=== PATIENT | female | born 1930 | race Caucasian/White ===

== ENCOUNTER 2017-07-02 20:46 | Inpatient (IN) | payer MEDICARE ==
[~2017-07-02] VITALS: Ht 152.4 cm; Wt 56.7 kg
--- OUTSIDE RECORDS SUMMARY | 2017-07-02 20:48 | XMS REPORT | Summary of Care ---
Author Author Keysha Barragan, Hanna Tommy Unknown Address Unknown Phone Unavailable Care Team Providers Care Land Conservation Specialist Name Role Phone SHILO Gomez, DAVE Unavailable Unavailable MAITE Mims, JAMISON Unavailable Unavailable JIE Gomez, YUDITH Unavailable Unavailable SHILO MÉNDEZ MT, DAVE Torres Unavailable Unavailable Unavailable Unavailable Functional Status Name Dates Details Functional status health issues are not documented Status: Name Dates Details Cognitive status health issues are not documented Status: Problems Name Dates Details Hyperlipidemia (272.4, E78.5) Status: Active Anxiety and depression (300.00, F41.9) Status: Active GERD without esophagitis (530.81, K21.9) Status: Active Rosalba vaginitis (112.1, B37.3) Status: Active Pruritus (698.9, L29.9) Status: Active Constipation (564.00, K59.00) Status: Active Hemorrhoids (455.6, K64.9) Status: Active Vaginal itching (698.1, L29.8) Status: Active Frequent urination (788.41, R35.0) Status: Active Benign hypertension (401.1, I10) Status: Active Fall in home, initial encounter (E888.9, W19.XXXA) Status: Active Contusion of left hand, initial encounter (923.20, S60.222A) Status: Active Pain of left hand (729.5, M79.642) Status: Active Contusion of left thigh, initial encounter (924.00, S70.12XA) Status: Active Low back pain (724.2, M54.5) Status: Active Restless leg syndrome (333.94, G25.81) Status: Active Macular degeneration (362.50, H35.30) Status: Active Tinea pedis of right foot (110.4, B35.3) Status: Active Preoperative clearance (V72.84, Z01.818) Status: Active Fracture, metacarpal, neck (815.04, S62.339A) Status: Active Balance problem (781.99, R26.89) Status: Active Closed displaced fracture of neck of first metacarpal bone of left hand, initial encounter (815.04, S62.252A) Status: Active Peripheral neuropathy (356.9, G62.9) Status: Active Hearing loss (389.9, H91.90) Status: Active Visual impairment in both eyes (369.3, H54.3) Status: Active Medications Name Dates Details AmLODIPine Besylate 5 MG Oral Tablet TAKE 1 TABLET BY MOUTH DAILY Quantity: 90 DAVE LAO M.D. * Start : 29-May-2017 Active Benazepril HCl - 20 MG Oral Tablet TAKE 1 TABLET BY MOUTH DAILY * Quantity: 90 Refills: 1 DAVE LAO M.D. * Start : 21-Apr-2017 Active BuPROPion HCl ER (XL) 150 MG Oral Tablet Extended Release 24 Hour * Refills: 0 Active Omeprazole 20 MG Oral Tablet Delayed Release * Refills: 0 Active PARoxetine HCl - 20 MG Oral Tablet TAKE 1 TABLET DAILY. * Quantity: 90 Refills: 0 DAVE LAO M.D. Active MiraLax Oral Powder * Refills: 0 Active ROPINIRole HCl - 1 MG Oral Tablet TAKE 3 TABLETS BY MOUTH AT BEDTIME * Quantity: 270 Refills: 1 DAVE LAO M.D. * Start : 27-Feb-2017 Active Simvastatin 20 MG Oral Tablet TAKE 1 TABLET DAILY. * Quantity: 90 Refills: 1 DAVE LAO M.D. Active Nystatin-Triamcinolone 501267-6.1 UNIT/GM-% External Cream APPLY SPARINGLY TO AFFECTED AREA(S) TWICE DAILY X2 WKS, THEN STOP. * Quantity: 30 Refills: 2 DAVE LAO M.D. * Start : 21-Aug-2016 Active Triamcinolone Acetonide 0.1 % External Cream APPLY THIN LAYER EXTERNALLY TO THE AFFECTED AREA TWICE DAILY NEEDED * Quantity: 30 Refills: 1 DAVE LAO M.D. * Start : 07-Oct-2016 Active Gabapentin 100 MG Oral Capsule TAKE 2 CAPSULES 3 TIMES DAILY. * Quantity: 540 Refills: 1 DAVE LAO M.D. * Start : 25-Aug-2016 Active Clotrimazole-Betamethasone 1-0.05 % External Lotion APPLY AND RUB IN A THIN FILM TO AFFECTED AREAS TWICE DAILY.(AM AND PM). * Quantity: 1 Refills: 2 YEH D.O., TAMIKANellyLILY * Start : 18-May-2017 Active 30 ML Bottle Ondansetron HCl - 8 MG Oral Tablet TAKE 1 TABLET Every twelve hours * Quantity: 15 Refills: 0 MANSDYANA M.D., YUDITH * Start : 20-May-2017 Active Colace 100 MG Oral Capsule TAKE 1 CAPSULE 3 TIMES DAILY. * Quantity: 45 Refills: 0 MANSDYANA M.D., YUDITH * Start : 20-May-2017 Active Allergies and Adverse Reactions Name Dates Details Iodine SOLN (Allergy) Status: Active Past Medical History Name Dates Details History of Bilateral hearing loss (389.9, H91.93) Status: Resolved History of depression (V11.8, Z86.59) Status: Resolved History of high cholesterol (V12.29, Z86.39) Status: Resolved History of hypertension (V12.59, Z86.79) Status: Resolved History of osteoporosis (V13.59, Z87.39) Status: Resolved History of Vision problem (V41.0, H54.7) Status: Resolved Procedures Procedure Dates Details [U] XRAY FINGER(S) - 2 VWS MIN. LEFT 90224 Date: 29-Jun-2017 History of Back surgery Completed History of Appendectomy Completed Immunization Name Dates Details Immunizations not documented Family History Name Dates Details Family history of intracranial hemorrhage (V17.1, Z82.3) Status: Active Family history of cerebrovascular accident (CVA) (V17.1, Z82.3) Status: Active Social History Name Dates Details - Status: Name Dates Details Smoker. current status unknown Vital Signs Date Test Result Details [id number] BP Systolic 181 mm[Hg] Status: Comments: Location: LUE; Position: Sitting BP Diastolic 76 mm[Hg] Status: Comments: Location: LUE; Position: Sitting Height 60 in Status: Weight 121 lb Status: Body Mass Index Calculated 23.63 kg/m2 Status: Body Surface Area Calculated 1.51 m2 Status: Temperature 98 f Status: Comments: Method: Temporal Respiration Rate 16 /min Status: Heart Rate 77 /min Status: Results Date Description Value Details :39 [U] XRAY FINGER(S) - 2 VWS MIN. LEFT 94155 XR FINGER(S) - 2 VWS MIN. LEFT Images acquired, not reported on this accession number. :18 [Q] LIPID PANEL WITH REFLEX TO DIRECT LDL CHOLESTEROL, TOTAL 252 mg/dl (Above high threshold) Range: <200 HDL CHOLESTEROL 69 mg/dl (Normal) Range: >50 TRIGLYCERIDES 77 mg/dl (Normal) Range: <150 LDL-CHOLESTEROL 165 {MG/DL__CAL} (Above high threshold) Comments: Reference range: <100 Desirable range <100 mg/dL for primary prevention; <70 mg /dL for patients with CHD or diabetic patients with > or=2 CHD risk factors. LDL -C is now calculated using the Андрей calculation, which is a validated novel method providing better accuracy than the Friedewald equation in the estimation of LDL-C. Dom RUBIO et al. ARTHUR. 2013;310(19): 2568-7048 (http:// education.[employer]/faq/BXS283) CHOL/HDLC RATIO 3.7 {CALC} (Normal) Range: <5.0 NON HDL CHOLESTEROL 183 {MG/DL__CAL} (Above high threshold) Range: <130 Comments: For patients with diabetes plus 1 major ASCVD risk factor, treating to a non-HDL-C goal of <100 mg/dL (LDL-C of <70 mg/dL) is considered a therapeutic option. :18 [QL] CMP W/EGFR GLUCOSE 87 mg/dl (Normal) Range: 65-99 Comments: Fasting reference interval UREA NITROGEN (BUN) 26 mg/dl (Above high threshold) Range: 7-25 CREATININE 0.89 mg/dl (Above high threshold) Range: 0.60-0.88 Comments: For patients >49 years of age, the reference limitfor Creatinine is approximately 13% higher for peopleidentified as -Swiss. eGFR NON- 59 {ML/MIN/1.7} (Below low threshold) Range: > OR=60 eGFR 68 {ML/MIN/1.7} (Normal) Range: > OR=60 BUN/CREATININE RATIO 29 {CALC} (Above high threshold) Range: 6-22 SODIUM 140 mmol/L (Normal) Range: 135-146 POTASSIUM 4.2 mmol/L (Normal) Range: 3.5-5.3 CHLORIDE 106 mmol/L (Normal) Range: 98-110 CARBON DIOXIDE 29 mmol/L (Normal) Range: 20-31 CALCIUM 9.6 mg/dl (Normal) Range: 8.6-10.4 PROTEIN, TOTAL 6.8 g/dl (Normal) Range: 6.1-8.1 ALBUMIN 3.9 g/dl (Normal) Range: 3.6-5.1 GLOBULIN 2.9 {G/DL__CALC} (Normal) Range: 1.9-3.7 ALBUMIN/GLOBULIN RATIO 1.3 {CALC} (Normal) Range: 1.0-2.5 BILIRUBIN, TOTAL 0.4 mg/dl (Normal) Range: 0.2-1.2 ALKALINE PHSPHATASE 78 u/l (Normal) Range: 33-130 AST 21 u/l (Normal) Range: 10-35 ALT 14 u/l (Normal) Range: 6-29 [id number]:18 [[facility]] CBC (INCLUDES DIFF/PLT) WHITE BLOOD CELL COUNT 8.2 {Thousand/u} (Normal) Range: 3.8-10.8 RED BLOOD CELL COUNT 4.28 {Million/uL} (Normal) Range: 3.80-5.10 HEMOGLOBIN 12.4 g/dl (Normal) Range: 11.7-15.5 HEMATOCRIT 37.6 % (Normal) Range: 35.0-45.0 MCV 87.9 fL (Normal) Range: 80.0-100.0 MCH 29.0 pg (Normal) Range: 27.0-33.0 MCHC 33.0 g/dl (Normal) Range: 32.0-36.0 RDW 14.4 % (Normal) Range: 11.0-15.0 PLATELET COUNT 280 {Thousand/u} (Normal) Range: 140-400 MPV 11.5 fL (Normal) Range: 7.5-12.5 ABSOLUTE NEUTROPHILS 5994 {cells/uL} (Normal) Range: 8960-3623 ABSOLUTE LYMPHOCYTES 1509 {cells/uL} (Normal) Range: 850-3900 ABSOLUTE MONOCYTES 582 {cells/uL} (Normal) Range: 200-950 ABSOLUTE EOSINOPHILS 74 {cells/uL} (Normal) Range: 15-500 ABSOLUTE BASOPHILS 41 {cells/uL} (Normal) Range: 0-200 NEUTROPHILS 73.1 % (Normal) LYMPHOCYTES 18.4 % (Normal) MONOCYTES 7.1 % (Normal) EOSINOPHILS 0.9 % (Normal) BASOPHILS 0.5 % (Normal) 66-Roj-53204:18 [[facility]] TSH, 3RD GENERATION W/REFLEX TO FT4 Comments: REPORT COMMENT:FASTING:YES TSH, 3RD GENERATION W/REFLEX TO FT4 3.82 {MIU/L} (Normal) Range: 0.40- 4.50 [id number]-[id number]:18 [U] XRAY FINGER(S) - 2 VWS MIN. LEFT 80270 XR FINGER(S) - 2 VWS MIN. LEFT Images acquired, not reported on this accession number. Plan of Care Name Dates Details Planned Observations Planned Goals not documented Planned Encounters Appointment; YUDITH CERON M.D. On: 02-Jul-2017 9:00 Appointment; DAVE LAO M.D. On: 29-Jul-2017 9:00 Interventions Provided Labs/Procedures/Imaging* [U] XRAY FINGER(S) - 2 VWS MIN. LEFT 71420; To Be Done : 02 Jul 2017 Instructions Name Dates Details Instructions not documented Encounters Appointment; DAVE LAO M.D. Encounter Diagnosis: Problem not documented On: 13-Aug-2016 10:45 Appointment; DAVE LAO M.D. Encounter Diagnosis: Problem not documented On: 21-Aug-2016 12:30 Appointment; DAVE LAO M.D. Encounter Diagnosis: Problem not documented On: 10-Sep-2016 14:45 Appointment; DAVE LAO M.D. Encounter Diagnosis: Problem not documented On: 27-Apr-2017 15:15 Appointment; MIGUELINA MONTEIRO NP Encounter Diagnosis: Problem not documented On: 01-May-2017 15:30 Appointment; ATA MEDRANO M.D. Encounter Diagnosis: Problem not documented On: 05-May-2017 14:00 Appointment; YUDITH CERON M.D. Encounter Diagnosis: Problem not documented On: 14-May-2017 8:00 Appointment; JAMISON ARORA D.O. Encounter Diagnosis: Problem not documented On: 18-May-2017 14:45 Appointment; YUDITH CERON M.D. Encounter Diagnosis: Problem not documented On: 21-May-2017 6:00 Appointment; YUDITH CERON M.D. Encounter Diagnosis: Problem not documented On: 04-Jun-2017 9:45 Appointment; DAVE LAO M.D. Encounter Diagnosis: Problem not documented On: 10-Jun-2017 13:45 Appointment; YUDITH CERON M.D. Encounter Diagnosis: Problem not documented On: 19-Jun-2017 13:00 Appointment; YUDITH CERON M.D. Encounter Diagnosis: Problem not documented On: 02-Jul-2017 9:00
[2017-07-02] MEDS ORDERED: PANTOPRAZOLE 40 MG 10ML VIAL IV STA (21:08)
[2017-07-02 21:28] LABS: BASOPHILS # (AUTO) 0.1 (0.0-0.1); BASOPHILS % 0.9 % (0.0-1.0); EOSINOPHILS # (AUTO) 0.1 (0.0-0.4); EOSINOPHILS % 2.4 % (0.0-6.0); HEMOGLOBIN 12.3 g/dL (12.0-16.0); LYMPHOCYTES # (AUTO) 1.5 (1.0-3.2); LYMPHOCYTES % 24.7 % (18.0-39.1); MEAN CORPUSCULAR HEMOGLOBIN 29.4 pg (28-32); MEAN CORPUSCULAR HGB CONC 32.4 g/dL (31-35); MEAN CORPUSCULAR VOLUME 90.9 fL (81-99); MONOCYTES # (AUTO) 0.4 (0.2-0.8); MONOCYTES % 7.5 % (4.4-11.3); NEUTROPHILS # (AUTO) 3.8 (2.1-6.9); NEUTROPHILS % 64.3 % (38.7-80.0); PLATELET COUNT 205 x10e3/uL (140-360); RED BLOOD COUNT 4.18 x10e6/uL (3.6-5.1); RED CELL DISTRIBUTION WIDTH 16.8 % (11.7-14.4)
[2017-07-02 21:35] LABS: INR 0.98; PROTHROMBIN TIME 12.2 seconds (11.9-14.5)
[2017-07-02 21:36] LABS: PARTIAL THROMBOPLASTIN TIME 30.2 seconds (23.8-35.5)
[2017-07-02 21:43] LABS: ALANINE AMINOTRANSFERASE 19 IU/L (0-55); ALBUMIN 3.7 g/dL (3.5-5.0); ALBUMIN/GLOBULIN RATIO 0.9 (0.8-2.0); ALKALINE PHOSPHATASE 76 IU/L (40-150); ANION GAP 11.1 mmol/L (8-16); BLOOD UREA NITROGEN 21 mg/dL (7-26); BUN/CREATININE RATIO 20 (6-25); CALCIUM 10.4 mg/dL (8.4-10.2); CARBON DIOXIDE 31 mmol/L (22-29); CHLORIDE 102 mmol/L (98-107); CREATINE KINASE 155 IU/L (29-168); CREATININE, SERUM 1.07 mg/dL (0.57-1.11); EST GLOMERULAR FILTRATION RATE 49 ML/MIN (60-); GLUCOSE 127 mg/dL (74-118); MAGNESIUM 2.3 MG/DL (1.3-2.1); POTASSIUM 4.1 mmol/L (3.5-5.1); SODIUM 140 mmol/L (136-145)
[2017-07-02 21:51] LABS: B-TYPE NATRIURETIC PEPTIDE2 64.3 pg/mL (0-100)
--- NOTE | 2017-07-02 22:05 | Diagnostic Imaging Report ---
EXAMINATION: Head CT without contrast. HISTORY:Altered mental status, fall. COMPARISON:None. TECHNIQUE: Multidetector axial images were obtained from the foramen magnum to the vertex without contrast. The images were reconstructed using brain and bone algorithms. Thin section brain images were reformatted into coronal and sagittal planes. Intravenous contrast: None IMAGE QUALITY: Suboptimal evaluation at the skull base and posterior fossa structures due to streak artifacts. FINDINGS: Skull/scalp: Nonspecific punctate radiopaque density in the right frontoparietal scalp at the vertex possibly represents calcifications. No acute calvarial abnormality. Parenchyma: Nonspecific bilateral frontoparietal confluent periventricular, patchy and confluent subcortical and deep white matter hypodensity are likely related to small vessel ischemic changes. 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 No acute hemorrhage or mass. No acute major vascular territorial infarct. However possibility of superimposed acute vascular insult on the small vessel white matter changes is not excluded. Arteries: Atherosclerotic calcification in bilateral carotid siphon. Dural sinuses: No abnormal density suggestive of thrombosis. Ventricles: Mild compensated dilatation due to volume loss. No hydrocephalus. Extra-axial spaces: No abnormal density. Brain volume: Generalized age-related cerebral volume loss. Craniocervical junction: No mass, Chiari malformation, or basilar invagination. Sella: No mass. Paranasal/mastoid sinuses: Imaged portions unremarkable. IMPRESSION: 1. No acute posttraumatic intracranial abnormality. 2. Severe supratentorial white matter microvascular ischemic changes. 3. Generalized age-related cerebral volume loss. Signed by: Dr. Agnes Scruggs M.D. on 07/02/2017 10:01 PM
--- NOTE | 2017-07-02 22:12 | Diagnostic Imaging Report ---
History: Fall. Comparison studies: None Technique: Axial images were obtained through the cervical region.. Coronal and sagittal images reconstructed from the axial data.. Intravenous contrast: None Findings: Fractures: None. Soft tissue injuries: None. Atlantoaxial articulation: Intact. Alignment: Reversal of normal cervical lordosis. No scoliosis. 3 mm grade 1 anterolisthesis at C3-C4, C4-C5 and 2 mm grade 1 retrolisthesis at C5-C6 are likely degenerative. Cervicomedullary junction: No abnormalities. The foramen magnum is patent. Soft tissues: No abnormalities. Vertebrae: Diffuse osseous demineralization. No fractures, infection or neoplasm. Degenerative changes: C2-C3: Mild left foraminal stenosis due to facet and uncovertebral arthrosis. C3-C4: Mild right and severe left foraminal stenosis due to facet and uncovertebral arthrosis. C4-C5: Mild right and severe left foraminal stenosis due to facet and uncovertebral arthrosis. C5-C6: Posterior disc osteophyte complex without canal stenosis. Mild bilateral foraminal stenosis due to facet and uncovertebral arthrosis. Severe degenerative disc disease with near complete loss of intervertebral disc space, endplate sclerosis and anterior vertebral osteophyte. C6-C7: Posterior disc osteophyte complex results in mild canal stenosis. Mild bilateral foraminal stenosis due to facet and uncovertebral arthrosis. Moderate to severe degenerative disc disease with decreased intervertebral disc space, anterior vertebral osteophyte and endplate sclerosis.. IMPRESSION: 1. No acute cervical spine fracture. Reversal of normal cervical lordosis may be positional or due to degenerative changes or muscle spasm. 2. Ligament, spinal cord and or vascular abnormalities cannot be excluded on the basis of this examination. 3. Grade 1 anterolisthesis at C3-C4, C4-C5 and grade 1 retrolisthesis at C5-C6 are likely degenerative. 4. Cervical spondylosis as detailed above. Signed by: Dr. Agnes Scruggs M.D. on 07/02/2017 10:08 PM
[2017-07-02 22:29] LABS: BILIRUBIN,URINE NEGATIVE (NEGATIVE); CLARITY,URINE CLEAR (CLEAR); COLOR,URINE YELLOW (YELLOW); KETONES,URINE NEGATIVE (NEGATIVE); LEUKOCYTE ESTERASE ,URINE 1+ (NEGATIVE); NITRITE,URINE NEGATIVE (NEGATIVE); PROTEIN,URINE DIPSTICK NEGATIVE (NEGATIVE); URINE UROBILINOGEN 0.2 mg/dL (0.2 - 1)
[2017-07-02] MEDS ORDERED: GENERLAC10 GM/15 M PO (22:30)
[2017-07-02] MEDS ORDERED: ROPINIROLE HCL1 MG PO (22:30)
[2017-07-02] MEDS ORDERED: BENAZEPRIL HCL20 MG PO (22:30)
[2017-07-02] MEDS ORDERED: GABAPENTIN100 MG PO (22:30)
[2017-07-02] MEDS ORDERED: AMLODIPINE BESYL5 MG PO (22:30)
[2017-07-02] MEDS ORDERED: PAROXETINE HCL20 MG PO (22:30)
[2017-07-02] MEDS ORDERED: BUPROPION XL150 MG PO (22:30)
[2017-07-02] MEDS ORDERED: HYDROCODON-ACE1 EA11 PO (22:30)
[2017-07-02] MEDS ORDERED: ASPIR 8181 MG PO (22:30)
[2017-07-02] MEDS ORDERED: SIMVASTATIN20 MG PO (22:30)
--- NOTE | 2017-07-02 22:36 | Diagnostic Imaging Report ---
CHEST SINGLE (PORTABLE), 07/02/2017 9:08 PM Technique: CHEST SINGLE (PORTABLE) Comparison: None available. Clinical history: Fall, altered mental status Findings: See Impression Impression: 1. Mildly enlarged cardiac silhouette, accentuated by portable technique. Atherosclerotic calcifications. 2. Hyperinflation without consolidation. 3. Asymmetric right apical pleural thickening/opacity. Recommend follow-up upright PA and lateral. 4. Density overlying the right upper quadrant may be external. Signed by: Dr Yuliet Lopez MD on 07/02/2017 10:33 PM
[2017-07-02 22:41] LABS: BACTERIA,URINE FEW /HPF; EPITHELIAL CELLS,URINE MODERATE /LPF; TRANSITIONAL EPI CELLS,URINE FEW; WBC,URINE (MAN) 21-50 /HPF (0-5)
[2017-07-02] MEDS ORDERED: ONDANSETRON HCL 4 MG ORAL DISINTEGRATING TAB PO PRN (23:15)
[2017-07-02 23:17] LABS: AMPHETAMINES SCREEN,URINE NEGATIVE (NEGATIVE); BENZODIAZEPINES SCREEN,URINE NEGATIVE (NEGATIVE); PHENCYCLIDINE SCREEN,URINE NEGATIVE (NEGATIVE)
[2017-07-02 23:26] LABS: ACETAMINOPHEN < 3 ug/mL (10-30)
--- OUTSIDE RECORDS SUMMARY | 2017-07-02 23:27 | XMS REPORT ---
[facility] Address Unknown Phone Unavailable Care Team Providers Care Transportation Officer Name Role Phone AVA SHAH Unavailable Unavailable Problems This patient has no known problems. Allergies, Adverse Reactions, Alerts This patient has no known allergies or adverse reactions. Medications This patient has no known medications. Results Test Description Test Time Test Comments Text Results Atomic Results Result Comments CT BRAIN WO [place] [id number] [place], [place] [address] Patient Name: MCKENZIE ROGERS MR #: [id number] : 1930 Age/Sex: 87/F Req #: [id number] Adm Physician: Ordered by: AVA SHAH MD Report #: [id number] Location: ER Room/Bed: Procedure: [id number] CT/CT BRAIN WO Exam Date: Exam Time: REPORT STATUS: Signed EXAMINATION: Head CT without contrast. HISTORY: Altered mental status, fall. COMPARISON:None. TECHNIQUE: Multidetector axial images were obtained from the foramen magnum to the vertex without contrast. The images were reconstructed using brain and bone algorithms. Thin section brain images were reformatted into coronal and sagittal planes. Intravenous contrast: None IMAGE QUALITY: Suboptimal evaluation at the skull base and posterior fossa structures due to streak artifacts. FINDINGS: Skull/scalp: Nonspecific punctate radiopaque density in the right frontoparietal scalp at the vertex possibly represents calcifications. No acute calvarial abnormality. Parenchyma: Nonspecific bilateral frontoparietal confluent periventricular, patchy and confluent subcortical and deep white matter hypodensity are likely related to small vessel ischemic changes. 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 No acute hemorrhage or mass. No acute major vascular territorial infarct. However possibility of superimposed acute vascular insult on the small vessel white matter changes is not excluded. Arteries: Atherosclerotic calcification in bilateral carotid siphon. Dural sinuses: No abnormal density suggestive of thrombosis. Ventricles: Mild compensated dilatation due to volume loss. No hydrocephalus. Extra-axial spaces: No abnormal density. Brain volume: Generalized age-related cerebral volume loss. Craniocervical junction: No mass, Chiari malformation, or basilar invagination. Sella: No mass. Paranasal/mastoid sinuses: Imaged portions unremarkable. IMPRESSION: 1. No acute posttraumatic intracranial abnormality. 2. Severe supratentorial white matter microvascular ischemic changes. 3. Generalized age-related cerebral volume loss. Signed by: Dr. Agnes Scruggs M.D. on 07/02/2017 10:01 PM Dictated By: AGNES SCRUGGS MD 00 Transcribed By: YAMILETH on 07/02/172200 COPY TO: AVA SHAH MD CT CERVICAL SPINE WO [place] [address] Patient Name: MCKENZIE ROGERS MR #: [id number] : 1930 Age/Sex: 87/F Req # : [id number] Adm Physician: Ordered by: AVA SHAH MD Report #: [id number] Location: ER Room/Bed: Procedure: [id number] CT/CT CERVICAL SPINE WO Exam Date: 05/10/18 Exam Time: 2134 REPORT STATUS: Signed History: Fall. Comparison studies : None Technique: Axial images were obtained through the cervical region.. Coronal and sagittal images reconstructed from the axial data.. Intravenous contrast: None Findings: Fractures: None. Soft tissue injuries: None. Atlantoaxial articulation: Intact. Alignment: Reversal of normal cervical lordosis. No scoliosis. 3 mm grade 1 anterolisthesis at C3- C4, C4-C5 and 2 mm grade 1 retrolisthesis at C5-C6 are likely degenerative. Cervicomedullary junction: No abnormalities. The foramen magnum is patent. Soft tissues: No abnormalities. Vertebrae: Diffuse osseous demineralization. No fractures, infection or neoplasm. Degenerative changes: C2-C3: Mild left foraminal stenosis due to facet and uncovertebral arthrosis. C3-C4: Mild right and severe left foraminal stenosis due to facet and uncovertebral arthrosis. C4-C5: Mild right and severe left foraminal stenosis due to facet and uncovertebral arthrosis. C5-C6: Posterior disc osteophyte complex without canal stenosis. Mild bilateral foraminal stenosis due to facet and uncovertebral arthrosis. Severe degenerative disc disease with near complete loss of intervertebral disc space, endplate sclerosis and anterior vertebral osteophyte. C6-C7: Posterior disc osteophyte complex results in mild canal stenosis. Mild bilateral foraminal stenosis due to facet and uncovertebral arthrosis. Moderate to severe degenerative disc disease with decreased intervertebral disc space, anterior vertebral osteophyte and endplate sclerosis.. IMPRESSION: 1. No acute cervical spine fracture. Reversal of normal cervical lordosis may be positional or due to degenerative changes or muscle spasm. 2. Ligament, spinal cord and or vascular abnormalities cannot be excluded on the basis of this examination. 3. Grade 1 anterolisthesis at C3-C4, C4-C5 and grade 1 retrolisthesis at C5 -C6 are likely degenerative. 4. Cervical spondylosis as detailed above. Signed by: Dr. Agnes Scruggs M.D. on 07/02/2017 10:08 PM Dictated By: AGNES SCRUGGS MD 07 Transcribed By: YAMILETH on 07/02/172207 COPY TO: AVA SHAH MD [facility] ([place] [address] Patient Name: MCKENZIE ROGERS MR #: [id number] : 1930 Age/Sex: 87/F Req #: [id number] [facility] Physician: Ordered by: AVA SHAH MD Report #: [id number] Location: ER Room/Bed: Procedure: [id number] DX/CHEST SINGLE (PORTABLE) Exam Date: 07/02/17 Exam Time: 2141 REPORT STATUS: Signed CHEST SINGLE ( PORTABLE), 07/02/2017 9:08 PM Technique: CHEST SINGLE (PORTABLE) Comparison: None available. Clinical history: Fall, altered mental status Findings: See Impression Impression: 1. Mildly enlarged cardiac silhouette, accentuated by portable technique. Atherosclerotic calcifications. 2. Hyperinflation without consolidation. 3. Asymmetric right apical pleural thickening/opacity. Recommend follow-up upright PA and lateral. 4. Density overlying the right upper quadrant may be external. Signed by: Dr Amos Lopez MD on 07/02/2017 10:33 PM Dictated By: AMOS LOPEZ MD 32 Transcribed By: YAMILETH on 07/02/172232 COPY TO: AVA SHAH MD
[2017-07-02] MEDS: CEFTRIAXONE SOD 1 GM VIAL IV SCH (23:38)
[2017-07-03 00:10] VITALS: BP 140/79
[2017-07-03 00:30] VITALS: BP 140/79
[2017-07-03 05:00] VITALS: BP 163/76
[2017-07-03 07:41] LABS: BASOPHILS % 0.3 % (0.0-1.0); EOSINOPHILS # (AUTO) 0.1 (0.0-0.4); EOSINOPHILS % 1.7 % (0.0-6.0); HEMATOCRIT 36.4 % (34.2-44.1); HEMOGLOBIN 11.8 g/dL (12.0-16.0); LYMPHOCYTES % 17.3 % (18.0-39.1); MEAN CORPUSCULAR HEMOGLOBIN 29.6 pg (28-32); MEAN CORPUSCULAR HGB CONC 32.4 g/dL (31-35); MEAN CORPUSCULAR VOLUME 91.2 fL (81-99); MONOCYTES # (AUTO) 0.5 (0.2-0.8); MONOCYTES % 8.5 % (4.4-11.3); NEUTROPHILS # (AUTO) 4.2 (2.1-6.9); PLATELET COUNT 190 x10e3/uL (140-360); RED BLOOD COUNT 3.99 x10e6/uL (3.6-5.1); RED CELL DISTRIBUTION WIDTH 16.9 % (11.7-14.4)
[2017-07-03 07:59] LABS: ALANINE AMINOTRANSFERASE 16 IU/L (0-55); ALBUMIN 3.2 g/dL (3.5-5.0); ALBUMIN/GLOBULIN RATIO 0.9 (0.8-2.0); ALKALINE PHOSPHATASE 67 IU/L (40-150); BLOOD UREA NITROGEN 17 mg/dL (7-26); BUN/CREATININE RATIO 20 (6-25); CALCIUM 9.5 mg/dL (8.4-10.2); CARBON DIOXIDE 27 mmol/L (22-29); CHLORIDE 105 mmol/L (98-107); CHOL/HDL RATIO 2.3 (3.0-3.6); CHOLESTEROL 167 MD/DL (0-199); CREATININE, SERUM 0.83 mg/dL (0.57-1.11); EST GLOMERULAR FILTRATION RATE > 60 ML/MIN (60-); GLUCOSE 91 mg/dL (74-118); HDL CHOLESTEROL 72 MG/DL (40-60); LDL CHOLESTEROL 85 MG/DL (60-130); SODIUM 138 mmol/L (136-145); TRIGLYCERIDES 49 MG/DL (0-149)
[2017-07-03 08:16] LABS: CREATINE KINASE 119 IU/L (29-168)
[2017-07-03 08:33] VITALS: BP 161/81
[2017-07-03] MEDS ORDERED: ASPIRIN 81 MG ENTERIC COATED PO SCH (09:00)
[2017-07-03] MEDS: FAMOTIDINE 20 MG/2 ML VIAL IV SCH ×2 (10:42→21:58)
[2017-07-03 12:00] VITALS: BP 172/84
[2017-07-03] MEDS: CEFTRIAXONE SOD 1 GM VIAL IV SCH ×2 (14:16→23:15)
[2017-07-03] MEDS ORDERED: LACTULOSE 10 GM PO PRN (15:00)
[2017-07-03] MEDS ORDERED: LACTULOSE SYRUP 20 GM/30 ML UDC PO PRN (15:15)
[2017-07-03] MEDS: CLONIDINE HCL 0.2 MG TAB PO PRN (15:34)
[2017-07-03 16:22] LABS: CREATINE KINASE 117 IU/L (29-168)
--- NOTE | 2017-07-03 16:29 | History and Physical ---
HISTORY OF PRESENT ILLNESS: This patient is an 87-year-old female with past medical history positive for chronic back pain, hypertension, neuropathy, hypercholesterolemia, who apparently was found to have some confusion. She came to the ER, and she was found to have a UTI. REVIEW OF SYSTEMS CARDIOVASCULAR: No chest pain or palpitations. RESPIRATORY: No shortness of breath. No cough. GASTROINTESTINAL: No nausea. No vomiting or diarrhea. GENITOURINARY: She does have frequency and dysuria. ALLERGIES: SHE IS ALLERGIC TO IODINE. SOCIAL HISTORY: She smokes. She does not drink. PAST MEDICAL HISTORY: Chronic back pain, hypertension, neuropathy, hypercholesterolemia, restless legs syndrome. PHYSICAL EXAMINATION: Blood pressure 172/84, heart rate 70 per minute, temperature 96.5, heart rate 16 per minute, respiratory rate 16 per minute. Oxygen saturation 96%. LABS: On the BMP, sodium 138, potassium 4.0, chloride 105, CO2 27, BUN 17, creatinine 0.3. Glucose 91. On the CBC, white blood count 5.88, hemoglobin 11.8, hematocrit 36.4, platelet count 190,000. PT 12.2, INR 0.98, PTT 30.2. AST 26, ALT 16, total bilirubin 0.3, alkaline phosphatase 67. FINAL IMPRESSION 1. Urinary tract infection. 2. Acute encephalopathy, most likely secondary to urinary tract infection. 3. Chronic back pain. 4. Hypertension. 5. Neuropathy. 6. Hypercholesterolemia. 7. Restless legs syndrome. PLAN OF TREATMENT 1. Continue Rocephin 1 gram IV piggyback twice a day. 2. Continue Zofran 4 mg IV q.4 h. as needed. 3. [place] 5 mg daily. 4. Bupropion 150 mg daily. 5. Lactulose 10 mg twice a day as needed. 6. Aspirin 81 mg daily. 7. Gabapentin 300 mg twice a day. 8. Requip 3 mg at bedtime. 9. Simvastatin 20 mg daily. 10. Benazepril 20 mg daily. 11. Clonidine 0.2 mg q.4 h. as needed for blood pressure more than 150/90. 12. Paxil 20 mg daily. 13. We are going to be waiting for the urine culture. Patient looks much more alert today. Job#: [id number]
[2017-07-03] MEDS ORDERED: GABAPENTIN 100 MG CAP PO SCH (17:00)
[2017-07-03] MEDS: GABAPENTIN 300 MG CAP PO SCH (17:34)
[2017-07-03 20:00] VITALS: BP 155/76
[2017-07-03] MEDS: ROPINIROLE HCL 1 MG TAB PO SCH (21:58)
[2017-07-03] MEDS: SIMVASTATIN 20 MG TAB PO SCH (21:58)
[2017-07-04] VITALS: BP 128/62
[2017-07-04 08:00] VITALS: BP 168/78
[2017-07-04] MEDS: ASPIRIN 81 MG CHEW TAB PO SCH (08:32)
[2017-07-04] MEDS: GABAPENTIN 300 MG CAP PO SCH ×2 (08:33→16:30)
[2017-07-04] MEDS: BENAZEPRIL HCL 10 MG TAB PO SCH (08:33)
[2017-07-04] MEDS: BUPROPION HCL 150 MG TABCR PO SCH (08:33)
[2017-07-04] MEDS: AMLODIPINE BESYLATE 5 MG TAB PO SCH (08:33)
[2017-07-04] MEDS: PAROXETINE HCL 20 MG TAB PO SCH (08:33)
[2017-07-04] MEDS ORDERED: ENALAPRIL MALEATE 10 MG TAB PO SCH (09:00)
[2017-07-04] MEDS ORDERED: NON-FORMULARY MEDICATION (Benazepril Hcl 20 MG) PO SCH (09:00)
[2017-07-04] MEDS: FAMOTIDINE 20 MG/2 ML VIAL IV SCH ×2 (09:24→21:08)
[2017-07-04] MEDS: CEFTRIAXONE SOD 1 GM VIAL IV SCH (10:36)
[2017-07-04 12:00] VITALS: BP 148/76
[2017-07-04] MEDS ORDERED: DIPHENHYDRAMINE HCL 25 MG CAP PO PRN (14:30)
[2017-07-04] MEDS ORDERED: LEVOFLOXACIN 250MG/D5W 50ML 50 ML IV SCH (14:30)
--- NOTE | 2017-07-04 15:07 | Progress Note ---
DATE: INTERNAL MEDICINE PROGRESS NOTE SUBJECTIVE: The patient is complaining of swelling on the lips and tongue whenever she is taking Rocephin. WE ARE GOING TO CONTINUE ROCEPHIN BECAUSE OF POSSIBLE ALLERGIC REACTION, and instead I am going to put her Levaquin 250 mg IV daily. PHYSICAL EXAM: VITAL SIGNS: Blood pressure is 148/76. Temperature 98 degrees. Heart rate 80 per minute. Respiratory rate is 16 per minute. Oxygen saturation 97%. HEART: Shows regular rhythm, normal S1 and S2 sounds. LUNGS: Clear bilaterally. ABDOMEN: Soft. EXTREMITIES: Show no evidence of cyanosis, edema or trauma. On the BMP: Sodium 138, potassium 4.0, chloride 105, CO2 27, BUN 17, creatinine 0.83, glucose 91. On the CBC: White blood count 5.88, hemoglobin 11.8, hematocrit 36.4, platelet count 190,000. PT 12.2, PTT 30.2, INR 0.98. AST 26, ALT 16, total bilirubin 0.3, alkaline phosphatase 67. FINAL IMPRESSION: 1. Urinary tract infection. 2. Encephalopathy, which is resolving. 3. Chronic pain syndrome. 4. Hypertension. 5. Neuropathy. 6. Hypercholesterolemia. PLAN OF TREATMENT: We are going to DISCONTINUE ROCEPHIN DUE TO AN ALLERGIC REACTION. Instead we are going to start the Levaquin 250 mg IV daily. Pepcid will continue 20 mg twice a day. Zofran 4 mg IV q.4 h. as needed. Amlodipine 5 mg daily. Bupropion 150 mg daily. Lactose 10 gram twice a day. Aspirin 81 mg daily. Gabapentin 300 mg twice a day. Requip 3 mg at bedtime. Simvastatin 20 mg daily. Benazepril 20 mg daily. Clonidine 0.2 mg q.4 h. as needed for hypertension. Paxil 20 mg daily. We are going to order physical and occupational therapy. She is doing well. Benadryl also 25 mg q.6 h. p.o. as needed for allergies. Job#: [id number] EV
[2017-07-04 16:00] VITALS: BP 128/71
[2017-07-04] MEDS: LEVOFLOXACIN 250MG/D5W 50ML 50 ML IV SCH (16:30)
[2017-07-04 20:00] VITALS: BP 150/81
[2017-07-04] MEDS: ROPINIROLE HCL 1 MG TAB PO SCH (21:08)
[2017-07-04] MEDS: SIMVASTATIN 20 MG TAB PO SCH (21:08)
[2017-07-05] VITALS (8 sets, daily range): BP systolic 133–173; BP diastolic 67–78
[2017-07-05] MEDS: ASPIRIN 81 MG CHEW TAB PO SCH (08:06)
[2017-07-05] MEDS: BENAZEPRIL HCL 10 MG TAB PO SCH (08:06)
[2017-07-05] MEDS: FAMOTIDINE 20 MG/2 ML VIAL IV SCH (08:06)
[2017-07-05] MEDS: AMLODIPINE BESYLATE 5 MG TAB PO SCH (08:07)
[2017-07-05] MEDS: GABAPENTIN 300 MG CAP PO SCH ×2 (08:07→16:42)
[2017-07-05] MEDS: PAROXETINE HCL 20 MG TAB PO SCH (08:07)
[2017-07-05] MEDS: BUPROPION HCL 150 MG TABCR PO SCH (08:07)
--- NOTE | 2017-07-05 13:02 | Discharge Summary ---
HISTORY OF PRESENT ILLNESS: Patient is an 87-year-old white female who had a past medical history mainly positive for pain and having hypercholesterolemia, hypertension, neuropathy. The patient came here with an episode of confusion, urinary tract infection. SHE WAS STARTED EMPIRICALLY ON IV ROCEPHIN. SHE HAD AN ALLERGIC REACTION. Then she was switched to Levaquin. Urine culture showed just a contamination, but she did have symptoms of UTI and apparently she has recurrent UTIs. PHYSICAL EXAM: HEART: Shows regular rhythm. Normal S1 and S2 sounds. LUNGS: Clear bilaterally. ABDOMEN: Soft. EXTREMITIES: Show no evidence of cyanosis, edema or trauma. VITAL SIGNS: On the blood pressure is 133/70, temperature 96.7, heart rate 69 per minute, respiratory rate is 18 per minute, oxygen saturation 98%. LABORATORY STUDIES: On the blood work, we have a BMP with a sodium 138, potassium 4.0, chloride 105, CO2 27, BUN 17, creatinine 0.83, glucose 91. On the CBC: White blood count 5.88, hemoglobin 11.8, hematocrit 36.4, platelet count 190,000. PT 12.2, PTT 30.2, INR 0.98. AST 26, ALT 16, total bilirubin 0.3, alkaline phosphatase 67. FINAL IMPRESSIONS: 1. History of recurrent urinary tract infections. 2. Hypothyroidism. 3. Status post confusion. 4. Chronic back pain. 5. Hypertension. 6. Neuropathy. 7. Hypercholesterolemia. 8. Acquired hypothyroidism. Patient is going to be discharged on nitrofurantoin 50 mg daily for 6 months. She is going to be seen by a urologist, also, because of the recurrent UTI. Continue Synthroid 0.05 mg p.o. daily. Zofran is going to be discontinued. Amlodipine 5 mg daily. Aspirin 81 mg daily. Gabapentin 300 mg twice a day. Requip 3 mg at bedtime for restless legs syndrome. Simvastatin 20 mg daily. Benazepril 20 mg daily. Paxil 20 mg daily. Bupropion 150 mg daily. Lactulose 10 mg twice a day. Patient is going to follow up with me and with urologist in a week. PENNY GONZÁLES MD Job#: [id number] EV
[2017-07-05] MEDS: LEVOFLOXACIN 250MG/D5W 50ML 50 ML IV SCH (16:42)
[2017-07-05] MEDS: SIMVASTATIN 20 MG TAB PO SCH (20:26)
[2017-07-05] MEDS: ROPINIROLE HCL 1 MG TAB PO SCH (20:26)
[2017-07-06] VITALS: BP 176/77
[2017-07-06] MEDS: CLONIDINE HCL 0.2 MG TAB PO PRN (00:03)
[2017-07-06 04:00] VITALS: BP 129/61
[2017-07-06] MEDS ORDERED: LEVOTHYROXINE SODIUM 50 MCG TAB PO SCH (06:00)
[2017-07-06 07:50] VITALS: BP 129/61
[2017-07-06 08:16] VITALS: BP 140/69
[2017-07-06] MEDS: PAROXETINE HCL 20 MG TAB PO SCH (08:23)
[2017-07-06] MEDS: AMLODIPINE BESYLATE 5 MG TAB PO SCH (08:23)
[2017-07-06] MEDS: BUPROPION HCL 150 MG TABCR PO SCH (08:23)
[2017-07-06] MEDS: ASPIRIN 81 MG CHEW TAB PO SCH (08:23)
[2017-07-06] MEDS: BENAZEPRIL HCL 10 MG TAB PO SCH (08:23)
[2017-07-06] MEDS: GABAPENTIN 300 MG CAP PO SCH (08:23)
== END 2017-07-06 10:00 | disposition home or self-care (01) | DRG 689 ==
LOC: ER 20:46 → OBSVTOIN 23:25 → INTOOBSV 23:25 → ERHOLD 23:25 → IMCU 23:36 → OBSVTOIN 07-03 15:50 → MED/SURG 07-04 06:42
PROVIDERS: ADMIT Internal Medicine; ATTEND Internal Medicine
DX: N39.0 Urinary tract infection, site not specified (principal); G93.41 Metabolic encephalopathy; G25.81 Restless legs syndrome; I10 Essential (primary) hypertension; E78.5 Hyperlipidemia, unspecified; M54.9 Dorsalgia, unspecified; G62.9 Polyneuropathy, unspecified; G89.4 Chronic pain syndrome; T36.1X5A Adverse effect of cephalosporins and other beta-lactam antibiotics, initial encounter; E03.9 Hypothyroidism, unspecified; Z79.52 Long term (current) use of systemic steroids
CPT/HCPCS: 36415; 70450; 71045; 72125; 80053; 80061; 80307; 80320; 80329; 81001; 82550; 82553; 83605; 83735; 83880; 84443; 84484; 85025; 85610; 85730; 87040; 87086; 93005; 97139; 99284; G0378; J0696; J1956

== ENCOUNTER 2017-07-12 17:29 | Emergency (ER) | payer MEDICARE ==
[~2017-07-12] VITALS: Ht 154.9 cm; Wt 56.7 kg
[~2017-07-12 17:29] MED LIST: AMLODIPINE BESYL5 MG PO; ASPIR 8181 MG PO; BENAZEPRIL HCL20 MG PO; BUPROPION XL150 MG PO; GABAPENTIN100 MG PO; GENERLAC10 GM/15 M PO; HYDROCODON-ACE1 EA11 PO; PAROXETINE HCL20 MG PO; ROPINIROLE HCL1 MG PO; SIMVASTATIN20 MG PO
--- OUTSIDE RECORDS SUMMARY | 2017-07-12 17:33 | XMS REPORT | Continuity of Care Document ---
Author Author [facility] Organization [facility] Address [address] [place] [address] Phone Unavailable Care Team Providers Care Manufacturing Accountant Name Role Phone DAVE LAO MD PCP Insurance Providers Guarantor Nancy Fontanez Address [address] [place] [address] Email NONE Payer [employer] Complete Policy Number [id number] Subscriber's Name Nancy Fontanez Relationship 18 Self / Same As Patient Group Number [id number] Effective Date 17 Advance Directives Directive Response Recorded Date/Time Does the patient have an advance directive? No 07/03/17 12:10am If yes, is advance directive on file with [facility]? No 07/03/17 12:10am If not on file with [facility] will patient provide a copy? No 07/03/17 12:10am Do you have a Directive to Physician? No 07/02/17 11:13pm Do you have a Medical Power of Operator? No 07/02/17 11:13pm Do you have an out of hospital Do Not Resuscitate Order? No 07/02/17 11:13pm Do you have any special needs we should be aware of? No 07/02/17 11:13pm Do you have a support person here with you today? Yes 07/02/17 11:13pm Did patient receive Notice of Privacy Practices? Yes 07/02/17 11:13pm Did patient receive patient rights and responsibilities? Yes 07/02/17 11:13pm Problems Medical Problem Onset Date Status Confusion Unknown UTI (urinary tract infection) Unknown Medications Current Home Medications Medication Dose Units Route Directions Days Qty Instructions Start Date Amlodipine Besylate 5 Mg Tablet 5 Mg Oral Daily 90 Aspirin (Aspir 81) 81 Mg Tablet.dr 81 Mg Oral Daily Benazepril Hcl 20 Mg Tablet 20 Mg Oral Daily 7 Bupropion Hcl (Bupropion Xl) 150 Mg Tab.er.24h 150 Mg Oral Daily 90 Gabapentin 100 Mg Capsule 300 Mg Oral Twice A Day 540 Hydrocodone Bit/Acetaminophen (Hydrocodon-Acetaminophen 5-325) 1 Each Tablet 1 Tab Oral Twice A Day as needed for Pain 35 Lactulose (Generlac) 10 Gm/15 Ml Solution 10 Gm Oral Twice A Day as needed for Constipation 1800 Paroxetine Hcl 20 Mg Tablet 20 Mg Oral Daily 90 Ropinirole Hcl 1 Mg Tablet 3 Mg Oral Bedtime 270 Simvastatin 20 Mg Tablet 20 Mg Oral Daily 90 Social History Social History Problem Response Recorded Date/Time Onset Date Status Hx Psychiatric Problems No 07/03/2017 12:10am Not Applicable Not Applicable Smoking Status Start Date Stop Date Current every day smoker Hospital Discharge Instructions No hospital discharge instruction information available. Plan of Care Discharge Date 07/06/17 10:00am Disposition HOME, SELF-CARE Instructions/Education Provided Urinary Tract Infection - Women Prescriptions See Medication Section Referrals PENNY GONZÁLES MD (Internal Medicine) Order Date: 1 Week Entered Date: 07/05/2017 1:05pm Address: [address] [place] [address] INDIA LARSON MD (Urology) Order Date: 1 Week Entered Date: 07/05/2017 4:05pm Address: [facility] [place] [address] Additional Instructions/Education FOLLOW UP WITH DR. GONZÁLES IN 1 WEEK. CALL THE OFFICE TO SCHEDULE AN APPOINTMENT. FOLLOW UP WITH A UROLOGIST, IN 1 WEEK FOR RECURRENT URINARY TRACT INFECTION. TAKE MEDICATIONS ORDERED. Functional Status Query Response Date Recorded FUNCTIONAL STATUS ` July 04, 2017 5:36pm Assistive Devices Standard Walker July 03, 2017 12:10am Ambulation Ability Moderate Assistance July 03, 2017 12:10am Toileting Ability Independent July 06, 2017 9:49am Allergies, Adverse Reactions, Alerts Allergen Type Severity Reaction Status Last Updated Iodine Allergy Unknown Active 07/02/17 Ceftriaxone Allergy Mild Active 07/04/17 Immunizations No immunization information available. Vital Signs Acute Vital Signs Vital Response Date/Time Temperature (Fahrenheit) 96.0 degrees F (97.6 - 99.5) 07/06/2017 8:16am Pulse Pulse Rate (adult) 60 bpm (60 - 90) 07/06/2017 8:16am Respiratory Rate 16 bpm (12 - 24) 07/06/2017 8:16am Blood Pressure 140/69 mm Hg 07/06/2017 8:16am Height 5 ft 0 in 07/02/2017 8:52pm Weight 125 lb 07/02/2017 8:52pm Body Mass Index 24.4 kg/m^2 07/03/2017 12:10am Results Laboratory Results Test Name Result Units Flags Reference Collection Date/Time Result Date/ Time Comments White Blood Count 5.88 x10e3/uL 4.8-10.8 07/03/2017 7:30am 07/03/2017 7 :44am Red Blood Count 3.99 x10e6/uL 3.6-5.1 07/03/2017 7:3007/03/2017 7: 44am Hemoglobin 11.8 g/dL L 12.0-16.0 07/03/2017 7:3007/03/2017 7:44am Hematocrit 36.4 % 34.2-44.1 07/03/2017 7:30am 07/03/2017 7:44am Mean Corpuscular Volume 91.2 fL 81-99 07/03/2017 7:3007/03/2017 7: 44am Mean Corpuscular Hemoglobin 29.6 pg 28-32 07/03/2017 7:30am 07/03/2017 7:44am Mean Corpuscular Hemoglobin Concent 32.4 g/dL 31-35 07/03/2017 7:07/03/2017 7:44am Red Cell Distribution Width 16.9 % H 11.7-14.4 07/03/2017 7:2017 7:44am Platelet Count 190 x10e3/uL 140-360 07/03/2017 7:07/03/2017 7: 44am Neutrophils (%) (Auto) 72.0 % 38.7-80.0 07/03/2017 7:07/03/2017 7: 44am Lymphocytes (%) (Auto) 17.3 % L 18.0-39.1 07/03/2017 7:07/03/2017 7 :44am Monocytes (%) (Auto) 8.5 % 4.4-11.3 07/03/2017 7:07/03/2017 7: 44am Eosinophils (%) (Auto) 1.7 % 0.0-6.0 07/03/2017 7:07/03/2017 7: 44am Basophils (%) (Auto) 0.3 % 0.0-1.0 07/03/2017 7:07/03/2017 7:44am IM GRANULOCYTES % 0.2 % 0.0-1.0 07/03/2017 7:07/03/2017 7:44am Neutrophils # (Auto) 4.2 2.1-6.9 07/03/2017 7:07/03/2017 7:44am Lymphocytes # (Auto) 1.0 1.0-3.2 07/03/2017 7:07/03/2017 7:44am Monocytes # (Auto) 0.5 0.2-0.8 07/03/2017 7:07/03/2017 7:44am Eosinophils # (Auto) 0.1 0.0-0.4 07/03/2017 7:07/03/2017 7:44am Basophils # (Auto) 0.0 0.0-0.1 07/03/2017 7:07/03/2017 7:44am Absolute Immature Granulocyte (auto 0.01 x10e3/uL 0-0.1 07/03/2017 7: 07/03/2017 7:44am Prothrombin Time 12.2 seconds 11.9-14.5 07/02/2017 9:06pm 07/02/2017 9: 41pm Prothromb Time International Ratio 0.98 07/02/2017 9:06pm 2017 9:41pm Oral Anticoagulant Therapy INR Values: 1. Low Intensity Therapy 1.5 - 2.0 2. Moderate Intensity Therapy 2.0 - 3.0 3. High Intensity Therapy(1) 2.5 - 3.5 4. High Intensity Therapy(2) 3.0 - 4.0 5. Panic Value INR > 5.0 Activated Partial Thromboplast Time 30.2 seconds 23.8-35.5 07/02/2017 9: 06pm 07/02/2017 9:41pm Urine Color YELLOW YELLOW 07/02/2017 10:22pm 07/02/2017 10:29pm Urine Clarity CLEAR CLEAR 07/02/2017 10:22pm 07/02/2017 10:29pm Urine Specific [place] 1.015 1.010-1.025 07/02/2017 10:22pm 2017 10:29pm Urine pH 7 5 - 7 07/02/2017 10:22pm 07/02/2017 10:29pm Urine Leukocyte Esterase 1+ H NEGATIVE 07/02/2017 10:22pm 07/02/2017 10:29pm Urine Nitrite NEGATIVE NEGATIVE 07/02/2017 10:22pm 07/02/2017 10: 29pm Urine Protein NEGATIVE NEGATIVE 07/02/2017 10:22pm 07/02/2017 10: 29pm Urine Glucose (UA) NEGATIVE NEGATIVE 07/02/2017 10:22pm 07/02/2017 10 :29pm Urine Ketones NEGATIVE NEGATIVE 07/02/2017 10:22pm 07/02/2017 10: 29pm Urine Opiates Screen POSITIVE H NEGATIVE 07/02/2017 11:05pm 2017 11:17pm This test provides only a screen. Positive results should be repeated by a confirmatory test. Urine Barbiturates Screen NEGATIVE NEGATIVE 07/02/2017 11:05pm 2017 11:17pm Urine Phencyclidine Screen NEGATIVE NEGATIVE 07/02/2017 11:05pm 07/02 11:17pm Urine Amphetamines Screen NEGATIVE NEGATIVE 07/02/2017 11:05pm 2017 11:17pm Urine Methamphetamines Screen NEGATIVE NEGATIVE 07/02/2017 11:05pm 11:17pm Urine Benzodiazepines Screen NEGATIVE NEGATIVE 07/02/2017 11:05pm 11/2017 11:17pm Urine Cocaine Screen NEGATIVE NEGATIVE 07/02/2017 11:05pm 07/02/2017 11:17pm Urine Cannabinoids Screen NEGATIVE NEGATIVE 07/02/2017 11:05pm 2017 11:17pm THESE RESULTS ARE FOR MEDICAL TREATMENT ONLY *THIS REPORT CONTAINS UNCONFIRMED SCREENING RESULTS* POSITIVE RESULTS WILL BE CONFIRMED BY REFERENCE LAB UPON REQUEST CUT-OFF DRUG CLASS CONCENTRATION ng/mL Amphetamines 1000 Methamphetamines 1000 Cocaine 300 Opiate 300 Phencyclidine 25 Cannabinoid 50 Barbiturates 300 Benzodiazepine 300 Methadone 300 Urine Methadone Screen NEGATIVE NEGATIVE 07/02/2017 11:05pm 2017 11:17pm THESE RESULTS ARE FOR MEDICAL TREATMENT ONLY *THIS REPORT CONTAINS UNCONFIRMED SCREENING RESULTS* POSITIVE RESULTS WILL BE CONFIRMED BY REFERENCE LAB UPON REQUEST CUT-OFF DRUG CLASS CONCENTRATION ng/mL Amphetamines 1000 Methamphetamines 1000 Cocaine Metabolite 300 Opiate 300 Phencyclidine 25 Cannabinoid 50 Barbiturates 300 Benzodiazepine 300 Methadone 300 Urine Urobilinogen 0.2 mg/dL 0.2 - 1 07/02/2017 10:22pm 07/02/2017 10: 29pm Urine Bilirubin NEGATIVE NEGATIVE 07/02/2017 10:pm 07/02/2017 10: 29pm Urine Blood NEGATIVE NEGATIVE 07/02/2017 10:pm 07/02/2017 10:29pm Urine WBC 21-50 /HPF H 0-5 07/02/2017 10:22pm 07/02/2017 10:42pm Urine RBC 6-10 /HPF H 0-5 07/02/2017 10:22pm 07/02/2017 10:42pm Urine Bacteria FEW /HPF NONE 07/02/2017 10:22pm 07/02/2017 10:42pm Urine Epithelial Cells MODERATE /LPF NONE 07/02/2017 10:22pm 2017 10:42pm Urine Transitional Epithelial Cells FEW H NONE 07/02/2017 10:22pm 11/2017 10:42pm Urine Coarse Granular Casts 1-5 H 0 07/02/2017 10:22pm 07/02/2017 10: 42pm Sodium Level 138 mmol/L 136-145 07/03/2017 7:30am 07/03/2017 8:01am Potassium Level 4.0 mmol/L 3.5-5.1 07/03/2017 7:3007/03/2017 8:01am Chloride Level 105 mmol/L 98-107 07/03/2017 7:3007/03/2017 8:01am Carbon Dioxide Level 27 mmol/L 22-29 07/03/2017 7:3007/03/2017 8: 01am Anion Gap 10.0 mmol/L 8-16 07/03/2017 7:3007/03/2017 8:01am Blood Urea Nitrogen 17 mg/dL 7-07/03/2017 7:3007/03/2017 8:01am Creatinine 0.83 mg/dL 0.57-1.11 07/03/2017 7:3007/03/2017 8:01am BUN/Creatinine Ratio 20 6-07/03/2017 7:3007/03/2017 8:01am Estimat Glomerular Filtration Rate > 60 ML/MIN 60- 07/03/2017 7:30 8:01am Ranges were taken from the National Kidney Disease Education Program and the National Kid[employer] Foundation literature. Reference ranges: 60 or greater: Normal 16-59 (for 3 consecutive months): Chronic kidney disease 15 or less: Kidney failure Glucose Level 91 mg/dL 74-118 07/03/2017 7:3007/03/2017 8:01am Calcium Level 9.5 mg/dL 8.4-10.2 07/03/2017 7:3007/03/2017 8:01am Lactic Acid Level 8.7 MG/DL 4.5-19.8 07/02/2017 9:06pm 07/02/2017 9: 39pm Magnesium Level 2.3 MG/DL H 1.3-2.1 07/02/2017 9:06pm 07/02/2017 9:43pm Total Bilirubin 0.3 mg/dL 0.2-1.2 07/03/2017 7:3007/03/2017 8:01am Aspartate Amino Transf (AST/SGOT) 26 IU/L 5-34 07/03/2017 7:302017 8:01am Alanine Aminotransferase (ALT/SGPT) 16 IU/L 0-55 07/03/2017 7:3012/2017 8:01am Total Protein 6.7 g/dL 6.5-8.1 07/03/2017 7:3007/03/2017 8:01am Albumin 3.2 g/dL L 3.5-5.0 07/03/2017 7:3007/03/2017 8:01am Globulin 3.5 g/dL 2.3-3.5 07/03/2017 7:3007/03/2017 8:01am Albumin/Globulin Ratio 0.9 0.8-2.0 07/03/2017 7:3007/03/2017 8: 01am Alkaline Phosphatase 67 IU/L 40-150 07/03/2017 7:3007/03/2017 8: 01am Triglycerides Level 49 MG/DL 0-149 07/03/2017 7:3007/03/2017 8:01am Cholesterol Level 167 MD/DL 0-199 07/03/2017 7:3007/03/2017 8:01am Less than 200 mg/dL Low Risk 201 - 239 mg/dL Borderline Risk 240 mg/dl and greater High Risk LDL Cholesterol 85 MG/DL 60-130 07/03/2017 7:3007/03/2017 8:01am HDL Cholesterol 72 MG/DL H 40-60 07/03/2017 7:3007/03/2017 8:01am Cholesterol/HDL Ratio 2.3 L 3.0-3.6 07/03/2017 7:3007/03/2017 8: 01am B-Type Natriuretic Peptide 64.3 pg/mL 0-100 07/02/2017 9:06pm 2017 9:54pm Creatine Kinase 117 IU/L 29-168 07/03/2017 3:58pm 07/03/2017 4:22pm Creatine Kinase MB 2.80 ng/mL 0-5.0 07/03/2017 3:58pm 07/03/2017 4: 29pm Troponin I < 0.001 ng/mL 0-0.300 07/03/2017 3:58pm 07/03/2017 4:29pm Acetaminophen Level < 3 ug/mL L 10-30 07/02/2017 11:05pm 07/02/2017 11: 26pm Thyroid Stimulating Hormone (TSH) 5.490 uIU/mL H 0.350-4.940 07/02/2017 9 :06pm 07/02/2017 10:03pm Ethyl Alcohol Level < 10.0 mg/dL 0.0-10.0 07/02/2017 11:05pm 2017 11:26pm Microbiology Results Procedure Source Organism/Result Collection Date/Time Result Date/Time Result Status Blood Culture Blood NO GROWTH AFTER 72 HOURS 9:06pm 07/05/2017 9:24pm Preliminary [place] [address] Patient Name: NANCY FONTANEZ MR # :[id number] : 1930 Age/Sex: 87/F Admit Physician: PENNY GONZÁLES MD Admit Date: 07/02/17 Location/Room/Bed: MED/SURG- 115-1 Discharge Date: Report: Discharge Summary HISTORY OF PRESENT ILLNESS: Patient is an 87-year-old white female who had a past medical history mainly positive for pain and having hypercholesterolemia, hypertension, neuropathy. The patient came here with an episode of confusion, urinary tract infection. SHE WAS STARTED EMPIRICALLY ON IV ROCEPHIN. SHE HAD AN ALLERGIC REACTION. Then she was switched to Levaquin. Urine culture showed just a contamination, but she did have symptoms of UTI and apparently she has recurrent UTIs. PHYSICAL EXAM: HEART: Shows regular rhythm. Normal S1 and S2 sounds. LUNGS: Clear bilaterally. ABDOMEN: Soft. EXTREMITIES: Show no evidence of cyanosis, edema or trauma. VITAL SIGNS: On the blood pressure is 133/70, temperature 96.7, heart rate 69 per minute, respiratory rate is 18 per minute, oxygen saturation 98%. LABORATORY STUDIES: On the blood work, we have a BMP with a sodium 138, potassium 4.0, chloride 105, CO2 27, BUN 17, creatinine 0.83, glucose 91. On the CBC: White blood count 5.88, hemoglobin 11.8, hematocrit 36.4, platelet count 190,000. PT 12.2, PTT 30.2, INR 0.98. AST 26, ALT 16, total bilirubin 0.3, alkaline phosphatase 67. FINAL IMPRESSIONS: 1. History of recurrent urinary tract infections. 2. Hypothyroidism. 3. Status post confusion. 4. Chronic back pain. 5. Hypertension. 6. Neuropathy. 7. Hypercholesterolemia. 8. Acquired hypothyroidism. Patient is going to be discharged on nitrofurantoin 50 mg daily for 6 months. She is going to be seen by a urologist, also, because of the recurrent UTI. Continue Synthroid 0.05 mg p.o. daily. Zofran is going to be discontinued. Amlodipine 5 mg daily. Aspirin 81 mg daily. Gabapentin 300 mg twice a day. Requip 3 mg at bedtime for restless legs syndrome. Simvastatin 20 mg daily. Benazepril 20 mg daily. Paxil 20 mg daily. Bupropion 150 mg daily. Lactulose 10 mg twice a day. Patient is going to follow up with me and with urologist in a week. PENNY GONZÁLES MD Job#: [id number] EV Dictated By: PENNY GONZÁLES MD Transcribed By: [facility] on 07/05/17 <Electronically signed by PENNY GONZÁLES MD>07/05/17 1334 Procedures Procedure Status Date Provider(s) Computed tomography of brain without radiopaque contrast Active 07/02/17 AVA SHAH MD Computed tomography of cervical spine without contrast Active 07/02/17 AVA SHAH MD Encounters Encounter Location Arrival/Admit Date Discharge/Depart Date Attending Provider Discharged Inpatient [facility] 07/02/17 11:25pm 10:00am PENNY GONZÁLES MD
--- NOTE | 2017-07-12 19:49 | Diagnostic Imaging Report ---
Exams: Head, maxillofacial and cervical spine CT without IV contrast History:Trauma Comparison studies:Head and cervical spine CTs of 07/02/2017. Technique: Axial images were obtained from the brain, face and cervical spine. Coronal and sagittal intracranial, maxillofacial and cervical reconstructions obtained from the axial data. Intravenous contrast: None Findings: Head CT: Scalp: Midline frontal scalp hematoma extends to the supra nasal soft tissues. Bones: Intact. No fractures. No blastic or lytic lesions. Brain sulci: Mildly prominent Ventricles: No hydrocephalus. Parenchyma: No mass, acute hemorrhage or acute cortical vascular insults. Confluent hypodensities in the supratentorial white matter are nonspecific but most compatible with chronic small vessel ischemic changes. There are chronic lacunar infarcts in the head of the right caudate nucleus and anterior limbs of the internal capsules Suprasellar region: No abnormalities. Craniocervical junction: The foramen magnum is patent. No Chiari one malformation. Maxillofacial CT: Soft tissues: Right prefrontal soft tissue hematoma extends to the paranasal soft tissues with associated underlying subcutaneous emphysema. Small nasal septal hematoma is also with associated subcutaneous emphysema. Bones: Mildly comminuted and mildly displaced bilateral nasal bone fractures and mildly comminuted and displaced fractures of the nasal septum. Orbits: Globes:Intact with bilateral incidental anterior scleral dystrophic calcifications. Extra or intraconal abnormalities:None. Paranasal sinuses: Clear. Cervical spine CT: Atlantoaxial articulation: The patient's head is slightly rotated to the left at the time of the exam which result in mild asymmetry of the lateral atlantodental intervals. The anterior atlantodental interval is intact.. Alignment: Cervical kyphosis centered at C5 with approximately 3 mm anterolisthesis of C3 on C4 and C4 on C5, minimal retrolisthesis of C5 on C6 and minimal anterolisthesis of T2 on T3 which are all likely degenerative in etiology. Cervicomedullary junction: No abnormalities. The foramen magnum is patent. Soft tissues: No gross acute abnormalities. Vertebrae: No fractures, neoplasm or infection. Chronic anterior wedging with associated anterior vertebral body height loss at C5 and C6 which results in cervical kyphotic deformity. Degenerative changes: Degenerated disks from C2 to T2; severe at C5-C6 and at C6-C7 and moderate at C4-C5. Moderate degenerative endplate changes at C5-C6 and at C6-C7. Mild canal stenosis at C5-C6 and at C6-C7 due to disc osteophyte complexes. Multilevel facet arthrosis, moderate to severe on the left at C2-C3 and bilaterally at C3-C4 and C4-C5. Multilevel foraminal stenosis due to uncovertebral and facet arthrosis (mild left at C2-C3, severe left and moderate right at C3-C4, severe left and mild right at C4-C5, mild bilaterally at C5-C6 and at C6-C7). Incidental findings: Scattered calcified atherosclerosis with calcified plaques in the left carotid bulb, bilateral common carotid arteries, carotid siphons, and in the bilateral vertebral arteries. Mild nonspecific scarring at the bilateral lung apices. IMPRESSION: Head CT: 1. Midline frontal scalp hematoma without underlying fracture. 2. No acute intracranial abnormalities. 3. No other changes from the previous head CT of 07/02/2017. 4. Chronic findings include: Mild generalized volume loss, severe chronic microvascular ischemic changes and chronic lacunar infarcts as described. Facial CT: 1. Mildly comminuted and displaced fractures of the nasal bones and nasal septum with associated perinasal and nasal septal soft tissue hematoma and subcutaneous emphysema. 2. No additional acute abnormalities. Cervical spine CT: 1. No cervical spine fracture or acute subluxation. 2. Advanced multilevel degenerative changes as described. 3. Cannot adequately evaluate ligament, spinal cord and or vascular abnormalities on the basis of this examination. Findings discussed with Roxanna Pickard at 7:41 PM on 07/12/2017. Signed by: Dr. Jeffery Martinez M.D. on 07/12/2017 7:46 PM
== END 2017-07-12 20:23 | disposition home or self-care (01) ==
LOC: ER 17:29
DX: S00.83XA Contusion of other part of head, initial encounter (principal); S16.1XXA Strain of muscle, fascia and tendon at neck level, initial encounter; W01.0XXA Fall on same level from slipping, tripping and stumbling without subsequent striking against object, initial encounter; Y92.008 Other place in unspecified non-institutional (private) residence as the place of occurrence of the external cause; E78.5 Hyperlipidemia, unspecified; I10 Essential (primary) hypertension; G89.29 Other chronic pain
CPT/HCPCS: 70450; 70486; 72125; 99283